=== PATIENT | female | born 1990 | race Caucasian/White ===

== ENCOUNTER 2019-07-25 14:09 | Inpatient (IN) | payer OTHER ==
[~2019-07-25] VITALS: Ht 162.6 cm; Wt 86.2 kg
[2019-07-25] MEDS ORDERED: LR 1,000 ML IV ONE (14:28)
[2019-07-25] MEDS ORDERED: CLINDAMYCIN 900 mg/50mL D5W 50 ML IV ONE (14:30)
[2019-07-25 14:53] LABS: BASOPHILS % (AUTO) 0.2 % (0.0-2.0); EOSINOPHILS # (AUTO) 0.1 K/uL (0.0-0.4); EOSINOPHILS % (AUTO) 0.5 % (0.0-4.0); HEMATOCRIT 32.2 % (36-48); HEMOGLOBIN 10.6 g/dL (12.0-16.0); LYMPHOCYTES % (AUTO) 18.1 % (20.5-51.5); MEAN CORPUSCULAR HEMOGLOBIN 26 pg (27-31); MEAN CORPUSCULAR HGB CONC 33 % (32-36); MEAN CORPUSCULAR VOLUME 80 fL (79.0-98.0); MONOCYTES # (AUTO) 0.8 K/uL (0.0-1.0); NEUTROPHILS # (AUTO) 8.2 K/uL (1.8-7.7); NEUTROPHILS % (AUTO) 74.2 % (40.0-70.0); PLATELET COUNT (AUTO) 405 K/uL (130-430); RED BLOOD CELL COUNT(AUTO) 4.03 MIL/uL (4.2-6.2); RED CELL DISTRIBUTION WIDTH 14.9 % (9.0-15.0); WHITE BLOOD COUNT (AUTO) 11.1 K/uL (4.8-10.8)
[2019-07-25 14:59] LABS: BILIRUBIN,URINE NEGATIVE (NEGATIVE); BLOOD, URINE 2+ (NEGATIVE); CLARITY/URINE SL CLOUDY (CLEAR); COLOR,URINE YELLOW (YELLOW); GLUCOSE,URINE NEGATIVE (NEGATIVE); KETONES,URINE TRACE (NEGATIVE); LEUKOCYTE ESTERASE ,URINE 2+ (NEGATIVE); NITRITE, URINE NEGATIVE (NEGATIVE); PROTEIN URINE TRACE (NEGATIVE); UROBILINOGEN,URINE 0.2 (0.2-1.0)
[2019-07-25] MEDS ORDERED: fentaNYL CITRATE/PF 100 MCG/2 ML AMP IVP PRN ×2 (15:00)
[2019-07-25] MEDS ORDERED: ONDANSETRON HCL 4 MG/2 ML VIAL IVP PRN (15:00)
[2019-07-25] MEDS ORDERED: NALOXONE HCL 0.4 MG/ML AMP (NARCAN) IVP PRN ×2 (15:00)
[2019-07-25] MEDS ORDERED: MORPHINE SULFATE 10MG/10ML PF AMP SP SCH (15:00)
[2019-07-25] MEDS ORDERED: DIPHENHYDRAMINE INJ 50 MG/ML VIAL IVP PRN (15:00)
[2019-07-25] MEDS ORDERED: NALBUPHINE HCL 10 MG/ML AMP IVP PRN (15:00)
[2019-07-25] MEDS ORDERED: KETOROLAC TROMETHAMINE 60 MG/2 ML VIAL IM PRN (15:00)
[2019-07-25 15:08] LABS: BACTERIA,URINE MANY /HPF (None Seen); MUCUS,URINE None Seen /LPF (None Seen); WBC,URINE 20-50 /HPF (0-3)
[2019-07-25] MEDS ORDERED: TERBUTALINE SULFATE 1 MG/ML VIAL ONE (15:28)
[2019-07-25] MEDS ORDERED: NS IRRIG SOLN 1000 ML IR ONE (16:03)
[2019-07-25] MEDS ORDERED: LR 1,000 ML IV.SOLN IV ONE (16:03)
[2019-07-25] MEDS ORDERED: DIPHENHYDRAMINE INJ 50 MG/ML VIAL IV ONE (16:03)
[2019-07-25] MEDS ORDERED: CLINDAMYCIN PHOSPHATE 900 mg/50mL D5W IV ONE (16:03)
[2019-07-25] MEDS ORDERED: BUPIVACAINE /DEX PF 0.75% SPINAL 2 ML AMP INJ ONE (16:03)
[2019-07-25] MEDS ORDERED: ONDANSETRON HCL 4 MG/2 ML VIAL IVP ONE (16:03)
[2019-07-25] MEDS ORDERED: MORPHINE SULFATE 10MG/10ML PF AMP EP ONE (16:03)
[2019-07-25] MEDS ORDERED: LR 1,000 ML IV SCH (16:05)
[2019-07-25] MEDS ORDERED: OXYTOCIN/0.9 % SODIUM CHLORIDE 1,000 ML IV ONE ×2 (16:05→17:31)
[2019-07-25] MEDS ORDERED: HYDROcodone/ACETAMIN 5-325 MG TAB (NORCO/ VICODIN) PO PRN (16:15)
[2019-07-25] MEDS ORDERED: LANOLIN 7 GM OINT. TP PRN (16:15)
[2019-07-25] MEDS ORDERED: ANUSOL 1 EA SUPP.RECT (PREPARATION H) RC PRN (16:15)
[2019-07-25] MEDS ORDERED: DOCUSATE SODIUM 100 MG CAPSULE PO PRN (16:15)
[2019-07-25] MEDS ORDERED: MORPHINE SULFATE 10 MG/ML VIAL IVP PRN (16:15)
[2019-07-25 20:26] VITALS: BP_SYST 110
[2019-07-25] MEDS ORDERED: TEMAZEPAM 15 MG CAPSULE PO PRN (21:00)
[2019-07-26 06:56] LABS: BASOPHILS % (AUTO) 0.2 % (0.0-2.0); EOSINOPHILS # (AUTO) 0.1 K/uL (0.0-0.4); EOSINOPHILS % (AUTO) 0.8 % (0.0-4.0); HEMATOCRIT 30.2 % (36-48); HEMOGLOBIN 9.9 g/dL (12.0-16.0); LYMPHOCYTES # (AUTO) 2.6 K/uL (1.0-5.5); MEAN CORPUSCULAR HEMOGLOBIN 26 pg (27-31); MEAN CORPUSCULAR HGB CONC 33 % (32-36); MEAN CORPUSCULAR VOLUME 80 fL (79.0-98.0); MONOCYTES % (AUTO) 7.2 % (1.7-9.3); NEUTROPHILS % (AUTO) 72.8 % (40.0-70.0); PLATELET COUNT (AUTO) 350 K/uL (130-430); RED BLOOD CELL COUNT(AUTO) 3.75 MIL/uL (4.2-6.2); RED CELL DISTRIBUTION WIDTH 14.7 % (9.0-15.0); WHITE BLOOD COUNT (AUTO) 13.7 K/uL (4.8-10.8)
[2019-07-26] MEDS ORDERED: KETOROLAC TROMETHAMINE 60 MG/2 ML VIAL IM ONE (10:15)
[2019-07-26] MEDS: IBUPROFEN 600 MG TABLET PO PRN ×2 (12:19→17:59)
[2019-07-26] MEDS: SIMETHICONE 80 MG TAB.CHEW PO PRN (12:19)
[2019-07-26] MEDS: HYDROcodone/ACETAMIN 5-325 MG TAB (NORCO/ VICODIN) PO PRN (15:05)
[2019-07-27] MEDS: IBUPROFEN 600 MG TABLET PO PRN ×3 (00:45→11:41)
[2019-07-27] MEDS: SIMETHICONE 80 MG TAB.CHEW PO PRN (11:41)
[2019-07-27] MEDS: HYDROcodone/ACETAMIN 5-325 MG TAB (NORCO/ VICODIN) PO PRN ×2 (11:44→14:13)
[2019-07-27] MEDS ORDERED: DIPH-TET-PERTUS Vaccine 0.5 ML VIAL (ADACEL) I.M. ONE (13:30)
== END 2019-07-27 14:20 | disposition home or self-care (01) | DRG 785 ==
LOC: SPU 14:09
PROVIDERS: ADMIT Obstetrics & Gynecology; ATTEND Obstetrics & Gynecology
PROC: 0UB70ZZ Excision of Bilateral Fallopian Tubes, Open Approach (ICD-10-PCS; 2019-07-25)
PROC: 10D00Z1 Extraction of Products of Conception, Low, Open Approach (ICD-10-PCS; principal; 2019-07-25 16:00)
DX: O69.81X0 Labor and delivery complicated by cord around neck, without compression, not applicable or unspecified (principal); O34.211 Maternal care for low transverse scar from previous cesarean delivery; Z3A.38 38 weeks gestation of pregnancy; Z37.0 Single live birth; Z30.2 Encounter for sterilization; Z88.0 Allergy status to penicillin
CPT/HCPCS: 36415; 81000-TC; 85025; 86592; 86886; 86900; 86901; 87086; 87186-TC; 88302; 90715; J1200; J1885; J2274; J2405; J2590; J3105; J3490; J7120